=== PATIENT | female | born 1990 | race Hispanic/Latino ===

== ENCOUNTER 2023-07-14 16:00 | Inpatient (IN) | payer OTHER, MEDICAID ==
[~2023-07-14] VITALS: Ht 152.4 cm; Wt 106.1 kg
[2023-07-15] MEDS ORDERED: CLINDAMYCIN IVPB 900MG/50ML 50 ML IV PRN (05:30)
[2023-07-15] MEDS ORDERED: GENTAMICIN SULFATE 240 MG in 0.9%NACL 100ML 100 ML IV PRN (05:30)
[2023-07-15] MEDS ORDERED: CALDOLOR 800MG+NS 250ML 250 ML IV PRN (05:30)
[2023-07-15] MEDS: LACTATED RINGERS 1000ML 1,000 ML IV SCH ×2 (05:50→07:49)
[2023-07-15 05:56] LABS: HEMATOCRIT 32.6 % (36-48); MEAN CORPUSCULAR HEMOGLOBIN 27.3 pg (27.0-33.0); MEAN CORPUSCULAR HGB CONC 32.5 g/dL (32.0-36.0); RED BLOOD CELL COUNT(AUTO) 3.88 MIL/uL (4.00-5.50); RED CELL DISTRIBUTION WIDTH 14.1 % (11.0-15.5); WHITE BLOOD COUNT (AUTO) 8.7 K/uL (4.8-10.8)
[2023-07-15 06:01] LABS: APPEARANCE,URINE CLEAR (CLEAR); BILIRUBIN,URINE NEGATIVE (NEGATIVE); COLOR,URINE LIGHT-YELLOW (YELLOW); GLUCOSE, URINE (UA) NEGATIVE (NEGATIVE); KETONES,URINE 20 mg/dL (NEGATIVE); LEUKOCYTE ESTERASE ,URINE NEGATIVE Leu/uL (NEGATIVE); NITRATE,URINE NEGATIVE (NEGATIVE); OCCULT BLOOD,URINE NEGATIVE (NEGATIVE); PH,URINE 5.5 (5.0-8.0); PROTEIN,URINE 10 mg/dL (NEGATIVE); UROBILINOGEN,URINE 0.2 mg/dL (0.2-1.0)
[2023-07-15 06:04] LABS: ADD UA MICROSCOPIC NO; MUCUS,URINE RARE LPF (None Seen); RBC,URINE 0-1 /HPF (0-1); SQUAMOUS EPITHELIAL CELL,UR MOD /HPF (0-2)
[2023-07-15 06:25] VITALS: BP 123/68
[2023-07-15] MEDS ORDERED: MORPHINE PF 100MG/10ML AMP IV ONE (08:41)
[2023-07-15] MEDS ORDERED: EPHEDRINE SULFATE 50 MG/ML AMPULE ONE (08:52)
[2023-07-15] MEDS ORDERED: PHENYLEPHRINE HCL 10 MG/ML 1ML VIAL IV ONE (08:52)
[2023-07-15] MEDS ORDERED: METHYLERGONOVINE MALEATE 0.2 MG/1 ML ML ONE (09:11)
[2023-07-15] MEDS ORDERED: OXYTOCIN 10 USP UNITS/ML ONE (09:23)
[2023-07-15] MEDS ORDERED: OXYTOCIN-LR 30 UNITS/500ML 500 ML IV ONE (09:45)
[2023-07-15] MEDS ORDERED: OXYTOCIN-LR 30 UNITS/500ML 500 ML IV PRN (10:00)
[2023-07-15] MEDS ORDERED: 0.9%NACL 10ML VIAL IVP PRN (10:00)
[2023-07-15] MEDS ORDERED: MEPERIDINE-PF 75 MG/ML SYG IM PRN (10:00)
[2023-07-15] MEDS ORDERED: PROMETHAZINE HCL 25 MG/ML 1ML AMPULE IM PRN (10:00)
[2023-07-15] MEDS ORDERED: PREN1COM PO (14:38)
[2023-07-15 15:09] VITALS: BP 111/58; PULSE 68; RESP 18
[2023-07-15] MEDS: DEXTROSE 5 %-0.45 % NACL 1,000 ML IV PRN (17:42)
[2023-07-15] MEDS: CALDOLOR 800MG+NS 250ML 250 ML IV SCH (18:26)
[2023-07-15] MEDS ORDERED: ONDANSETRON 4MG INJ IVP PRN (19:00)
[2023-07-15] MEDS ORDERED: DiphenhydrAMINE HCL 50 MG/ML VIAL IV ONE (19:00)
[2023-07-15 20:01] VITALS: BP 123/77; PULSE 107; RESP 19
[2023-07-15] MEDS ORDERED: HYDROCODONE/ACETAMINOPHEN 5/325 MG TAB PO PRN (21:30)
[2023-07-15] MEDS ORDERED: ACETAMINOPHEN WITH CODEINE 1 TAB TAB PO PRN (21:30)
[2023-07-15] MEDS ORDERED: LANOLIN 30GM OINTMENT TP PRN (21:30)
[2023-07-15] MEDS ORDERED: ACETAMINOPHEN 500 MG TABLET PO PRN (21:30)
[2023-07-16] VITALS (7 sets, daily range): BP systolic 107–131; BP diastolic 69–94; PULSE 71–108; RESP 18–20
[2023-07-16] MEDS: CALDOLOR 800MG+NS 250ML 250 ML IV SCH (02:02)
[2023-07-16] MEDS: DEXTROSE 5 %-0.45 % NACL 1,000 ML IV PRN (02:22)
[2023-07-16 06:44] LABS: HEMATOCRIT 31.2 % (36-48); MEAN CORPUSCULAR HEMOGLOBIN 27.8 pg (27.0-33.0); MEAN CORPUSCULAR HGB CONC 31.7 g/dL (32.0-36.0); MEAN CORPUSCULAR VOLUME 87.6 fL (79-99); RED BLOOD CELL COUNT(AUTO) 3.56 MIL/uL (4.00-5.50); RED CELL DISTRIBUTION WIDTH 14.2 % (11.0-15.5); WHITE BLOOD COUNT (AUTO) 8.9 K/uL (4.8-10.8)
[2023-07-16] MEDS: DOCUSATE SODIUM 100 MG CAP PO SCH ×2 (08:40→20:52)
[2023-07-16] MEDS: SIMETHICONE 80 MG TAB.CHEW PO PRN (08:40)
[2023-07-16] MEDS: IBUPROFEN 800 MG TAB PO SCH ×2 (10:13→17:51)
[2023-07-17] MEDS: IBUPROFEN 800 MG TAB PO SCH ×2 (02:33→10:15)
[2023-07-17 03:51] VITALS: BP 126/78; PULSE 61; RESP 18
[2023-07-17 07:22] VITALS: BP 131/79; PULSE 81
[2023-07-17] MEDS: SIMETHICONE 80 MG TAB.CHEW PO PRN (08:11)
[2023-07-17] MEDS: DOCUSATE SODIUM 100 MG CAP PO SCH (08:11)
[2023-07-17 11:40] VITALS: BP 129/81; PULSE 88; RESP 20
== END 2023-07-17 12:20 | disposition home or self-care (01) | DRG 785 ==
LOC: LDH 07-15 04:48 → WSH 07-15 17:40
PROVIDERS: ADMIT Obstetrics & Gynecology; ATTEND Obstetrics & Gynecology
PROC: 0UB70ZZ Excision of Bilateral Fallopian Tubes, Open Approach (ICD-10-PCS; 2023-07-15)
PROC: 10D00Z1 Extraction of Products of Conception, Low, Open Approach (ICD-10-PCS; principal; 2023-07-15 07:30)
DX: O34.211 Maternal care for low transverse scar from previous cesarean delivery (principal); O36.63X0 Maternal care for excessive fetal growth, third trimester, not applicable or unspecified; O99.214 Obesity complicating childbirth; O99.284 Endocrine, nutritional and metabolic diseases complicating childbirth; O32.1XX0 Maternal care for breech presentation, not applicable or unspecified; E66.01 Morbid (severe) obesity due to excess calories; E03.9 Hypothyroidism, unspecified; Z30.2 Encounter for sterilization; Z37.0 Single live birth; Z3A.39 39 weeks gestation of pregnancy
CPT/HCPCS: 36415; 59510; 81001; 81003; 85027; 86592; 86850; 86900; 86901; 87340; A4344; G0378; J1200; J1741; J2210; J2274; J2371; J2405; J2590; J3490; J7120; A4248; C1765